=== PATIENT | female | born 1960 | race Caucasian/White ===

== ENCOUNTER 2019-08-21 17:03 | Emergency (ER) | payer OTHER ==
[~2019-08-21] VITALS: Ht 157.5 cm; Wt 82.6 kg
[2019-08-21 17:08] VITALS: Ht 157.5 cm; Wt 82.6 kg
[2019-08-21 17:31] LABS: BASOPHIL % 0.6 % (0-2); PLATELET COUNT 206 x10^3mcL (130-400); RED CELL DISTRIBUTION WIDTH 14.5 % (11.5-14.5)
[2019-08-21 17:35] LABS: CALCIUM 9.4 mg/dL (8.5-10.1); CARBON DIOXIDE 25.6 mmol/L (21-32); CHLORIDE SERUM 106 mmol/L (98-107); CREATININE SERUM 0.8 mg/dL (0.6-1.0); GFR1 > 60 mL/min; GLUCOSE SERUM 92 mg/dL (74-106); POTASSIUM SERUM 3.7 mmol/L (3.5-5.1); SODIUM SERUM 141 mmol/L (136-145)
[2019-08-21 17:39] LABS: ALKALINE PHOSPHATASE 137 U/L (46-116); ALT/SGPT 45 U/L (14-59); AST/SGOT 26 U/L (15-37); BILIRUBIN TOTAL 0.38 mg/dL (0.20-1.00)
[2019-08-21 17:48] LABS: TOTAL PROTEIN, SERUM 8.3 g/dL (6.4-8.2)
[2019-08-21 19:15] VITALS: BP 168/99
== END 2019-08-21 20:04 | disposition home or self-care (01) ==
LOC: ED 17:03
PROVIDERS: Emergency Medicine
DX: I10 Essential (primary) hypertension (principal); E78.00 Pure hypercholesterolemia, unspecified
CPT/HCPCS: 36415